=== PATIENT | male | born 1980 | race Caucasian/White ===

== ENCOUNTER → 2020-09-27 08:05 | Outpatient (CLI) | payer OTHER, MEDICAID, SELFPAY ==
--- NOTE | 2020-09-27 | DI.ECHO.S_ITS ---
[facility]---------+ [facility] +---------+ : : [address] : [place] : : : : [id number] : : : : Phone: [phone]+ Echocardiogram Report + + :Name: MANE DOBBINS Study Date: 09/27/2020 Height: 74 in : [facility] ReadingLocation: Weight: 235 lb : : Gender: Male BSA: 2.3 m2 : :: 1980 Age: 40 yrs BP: 117/79 mmHg: :Reason For Study: FAMILY HISTORY OF ISCHEMIC HEART DISEASE : :Ordering Physician: KRISTEL, : :KRISTOFER Performed By: Claudia Golden : :Referring: KRISTOFER HUMPHRIES : + + Interpretation Summary The left ventricle is normal in size and wall thickness. Left ventricular systolic function appears normal without focal wall motion abnormalities. The ejection fraction is estimated to be 60-65%. Diastolic parameters suggest probable normal left ventricular diastolic function and normal filling pressures. The right ventricle is normal in size and function. The right ventricular systolic pressure is estimated to be at least 21 mmHg based on an estimated right atrial pressure of 3 mm Hg. The left atrial size is normal. Right atrial size is normal. There is no significant valvular heart disease. The ascending aorta is at the upper limits of normal in size. Procedure: A two-dimensional transthoracic echocardiogram with color flow and Doppler was performed. The study quality was technically adequate. There is no prior echocardiogram noted for this patient. The patient was in sinus rhythm with heart rates between 56-71 bpm during the exam. Left Ventricle: The left ventricle is normal in size and wall thickness. Left ventricular systolic function appears normal without focal wall motion abnormalities. The ejection fraction is estimated to be 60-65%. Diastolic parameters suggest probable normal left ventricular diastolic function and normal filling pressures. Right Ventricle: The right ventricle is normal in size and function. Atria: The left atrial size is normal. Right atrial size is normal. There is no Doppler evidence for an interatrial shunt. Mitral Valve: The mitral valve is normal in structure and function. There is trace mitral regurgitation. Aortic Valve: The aortic valve is trileaflet. The aortic valve opens well. There is no aortic valve stenosis. No aortic regurgitation is present. Tricuspid Valve: The tricuspid valve is normal in structure and function. There is mild tricuspid regurgitation. The right ventricular systolic pressure is estimated to be at least 21 mmHg based on an estimated right atrial pressure of 3 mm Hg. Pulmonic Valve: The pulmonic valve leaflets are thin and pliable; valve motion is normal. There is no pulmonic valvular regurgitation. There is no significant valvular heart disease. Great Vessels: The aortic root is normal size. The ascending aorta is at the upper limits of normal in size. The IVC is of normal diameter and collapses greater than 50% with a sniff. This suggests a low right atrial pressure of 3 mm Hg. Pericardium/ Pleura There is no pericardial effusion. There is no pleural effusion. MMode/2D Measurements & Calculations LVIDd: 5.2 cm LVOT diam: 2.3 cm LVIDs: 3.6 cm Ao root diam: 4.1 cm FS: 31.4 % asc Aorta Diam: 3.4 cm EPSS: 0.34 cm Ao Arch Diam (Prox Trans): 2.9 cm IVSd: 0.63 cm LVPWd: 0.85 cm LV dumont. diameter/BSA (cm/m^2): 2.3 LV sys. diameter/BSA (cm/m^2): 1.5 LA A2 area: 19.2 cm2 RA long axis: 4.6 cm LA A4 area: 18.9 cm2 RA area: 15.9 cm2 LA length (vol): 4.8 cm RA vol: 46.3 ml LA vol: 65.0 ml RA : 19.9 ml/m2 LA vol index: 27.9 ml/m2 IVC diam: 1.5 cm RVD1 (basal): 3.7 cm TAPSE: 2.2 cm Doppler Measurements & Calculations Ao V2 max: 109.5 cm/sec LVOT Max Jerry: 94.8 cm/sec Ao V2 mean: 80.6 cm/sec LV V1 max P.6 mmHg Ao max P.8 mmHg LV V1 VTI: 17.4 cm Ao mean P.9 mmHg LANDON(I,D): 3.2 cm2 Ao V2 VTI: 22.4 cm LANDON(V,D): 3.6 cm2 sev ratio: 0.78 LANDON indexed to BSA (cm^2/m^2): 1.4 MV E max jerry: 66.3 cm/sec TR max jerry: 213.1 cm/sec MV A max jerry: 47.8 cm/sec TR max P.2 mmHg MV E/A: 1.4 PA V2 max: 63.1 cm/sec Med Peak E' Jerry: 11.5 cm/sec PA V2 mean: 45.6 cm/sec E/E' med: 5.8 PA mean P.91 mmHg Lat Peak E' Jerry: 10.2 cm/sec PA pr(Accel): 27.6 mmHg E/E' lat: 6.5 E/e' average: 6.2 MV dec time: 0.26 sec SV(LVOT): 71.7 ml Reading Physician:02:00 PM
== END ==
PROVIDERS: PCP Family Medicine; Referring Provider Family Medicine; Visit Provider Family Medicine
DX: Z04.89 Encounter for examination and observation for other specified reasons (principal); I07.1 Rheumatic tricuspid insufficiency; Z82.49 Family history of ischemic heart disease and other diseases of the circulatory system
CPT/HCPCS: 93306

== ENCOUNTER → 2021-04-26 16:54 | Outpatient (CLI) | payer OTHER, MEDICAID, SELFPAY ==
--- NOTE | 2021-04-26 16:58 | DI.RAD.S_ITS ---
PROCEDURE: XR KNEE RT 3V INDICATIONS: RIGHT KNEE PAIN TECHNIQUE: 3 views of the knee were acquired. COMPARISON: None. FINDINGS: Bones: No fractures or dislocations. No suspicious bony lesions. Scattered degenerative subchondral sclerosis and spurring. Joint spaces grossly preserved. Soft tissues: No joint effusion. No suspicious soft tissue calcifications. IMPRESSION: Overall, grossly unremarkable examination. If the patient's pain or other symptoms persist, consider further evaluation with MRI Dictated by: Dominick Arrington M.D. on 04/27/2021 at 9:50 Approved by: Dominick Arrington M.D. on 04/27/2021 at 9:51
== END ==
PROVIDERS: PCP Family Medicine; Referring Provider Family Medicine; Visit Provider Family Medicine
DX: M25.561 Pain in right knee (principal)
CPT/HCPCS: 73562

== ENCOUNTER → 2021-05-06 13:06 | Outpatient (CLI) | payer OTHER, MEDICAID, SELFPAY ==
--- NOTE | 2021-05-06 | DI.MRI.S_ITS ---
PROCEDURE: MR KNEE RT WO CON INDICATIONS: Pain in right knee TECHNIQUE: Noncontrast sagittal PD fast spin echo and T2 fast spin echo with fat saturation, sagittal 3-D FLASH with fat saturation; coronal T1 spin echo and PD fast spin echo with fat saturation, and axial PD fast spin echo with fat saturation through the knee. COMPARISON: None. FINDINGS: Image quality: Excellent. Menisci: Complex oblique tear involving posterior horn of medial meniscus is seen extending to superior articulating surface. There is no focal lateral meniscal tear. 1 centimeter parameniscal cyst adjacent to posterior lateral aspect of posterior horn medial meniscus is seen. The meniscal root ligaments appear intact. Cruciate ligaments: The anterior and posterior cruciate ligaments appear intact. Medial structures: Low-grade proximal MCL sprain/partial-thickness tear at its femoral insertion is. The posterior oblique ligament, semimembranosus tendon insertions, oblique popliteal ligament, and meniscocapsular junction appear intact. Visualized portions of the pes anserinus tendons appear normal. No abnormal bursal fluid. Lateral structures: Low-grade proximal LCL sprain is seen. The long and short heads of the biceps femoris tendon appear intact. The popliteus tendon appears normal; the popliteofibular ligament appears intact. The posterosuperior and anteroinferior popliteomeniscal fascicles appear intact. The arcuate and fabellofibular ligaments appear intact, on either side of the lateral inferior geniculate artery. Iliotibial band appears normal. Anterior structures: The quadriceps and patellar tendons appear intact. Patellar alignment is normal. No femoral trochlear dysplasia or ventral trochlear prominence. No edema in the infrapatellar fat pad. Bones and cartilage: No bone marrow contusions or fractures. The cartilage of the medial and lateral femorotibial compartments appears normal in thickness. 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 Joint space: There is physiologic knee joint fluid. No Alfonso's cyst. Normal appearing synovial plicae are incidentally noted. IMPRESSION: 1. Oblique tear involving posterior horn of medial meniscus extending to superior articulating surface with adjacent 1 cm parameniscal cyst. No evidence of focal lateral meniscal tear. 2. Cruciate ligaments are intact. Low-grade proximal MCL sprain. Low-grade proximal LCL sprain/partial-thickness tear. 3. 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 Dictated by: Luis Alfredo Camejo M.D. on 05/09/2021 at 11:49 Approved by: Luis Alfredo Camejo M.D. on 05/09/2021 at 11:59
== END ==
PROVIDERS: PCP Family Medicine; Referring Provider Family Medicine; Visit Provider Family Medicine
DX: M25.561 Pain in right knee (principal); S83.241A Other tear of medial meniscus, current injury, right knee, initial encounter; S83.411A Sprain of medial collateral ligament of right knee, initial encounter; S83.421A Sprain of lateral collateral ligament of right knee, initial encounter; M22.41 Chondromalacia patellae, right knee
CPT/HCPCS: 73721

== ENCOUNTER → 2023-07-30 14:53 | Outpatient (CLI) | payer OTHER, SELFPAY ==
--- NOTE | 2023-07-30 | DI.RAD.S_ITS ---
PROCEDURE: XR CHEST 2V INDICATIONS: PRECORDIAL PAIN TECHNIQUE: 2 views of the chest were acquired. COMPARISON: None. FINDINGS: Surgical changes and devices: None. Lungs and pleura: Lungs are clear. No pleural effusions or pneumothorax. Mediastinum: Mediastinal contours are normal. Heart size is normal. Bones and chest wall: No suspicious bony abnormalities. Soft tissues appear unremarkable. IMPRESSION: No acute cardiopulmonary abnormality is seen. Dictated by: Wellington Fraser M.D. on 07/30/2023 at 16:09 Approved by: Wellington Fraser M.D. on 07/30/2023 at 16:09
== END ==
PROVIDERS: PCP Family Medicine; Referring Provider Family Medicine; Visit Provider Family Medicine
DX: R07.2 Precordial pain (principal)
CPT/HCPCS: 71046

== ENCOUNTER → 2023-08-08 07:49 | Outpatient (CLI) | payer OTHER, SELFPAY ==
--- NOTE | 2023-08-08 | DI.NM.S_ITS ---
PROCEDURE: NM EXERCISE TREADMILL NON NUC COMPARISON: None INDICATIONS: PRECORDIAL PAIN FINDINGS: Rest ECG sinus rhythm. Lefty protocol 11:31, maximum heart rate 152 bpm (112% peak predicted), maximum blood pressure of 152/94, 12.8 METS, [place] 0%. Exercise ECG sinus tachycardia, no ST segment changes or arrhythmias. The patient did not complain of chest pain. IMPRESSION: Low risk study. No evidence of exercise-induced ischemia or arrhythmia. Normal hemodynamic response. Average exercise capacity. Dictated by: Dinora Magaña D.O. on 08/08/2023 at 16:10 Approved by: Dinora Magaña D.O. on 08/08/2023 at 16:16
== END ==
PROVIDERS: PCP Family Medicine; Referring Provider Family Medicine; Visit Provider Family Medicine
DX: R07.2 Precordial pain (principal)
CPT/HCPCS: 93017